=== PATIENT | male | born 1970 | race Caucasian/White ===

== ENCOUNTER → 2017-09-06 | Emergency (ER) | payer SELFPAY ==
[~2017-09-06] VITALS: Ht 180.3 cm; Wt 79.0 kg
[~2017-09-06] MED LIST: NOCURR
[2017-09-07 00:12] VITALS: BP 139/95
== END | disposition home or self-care (01) ==
LOC: EMS 23:34
DX: K08.89 Other specified disorders of teeth and supporting structures (principal); Z53.21 Procedure and treatment not carried out due to patient leaving prior to being seen by health care provider